=== PATIENT | male | born 1955 | race Caucasian/White ===

== ENCOUNTER → 2024-06-11 | Outpatient (CLI) | payer MEDICAID ==
[2024-06-11 10:13] LABS: Basophils # (A) 0.03 X 10*3/uL (0.00-0.10); Basophils % (A) 0.6 %; Eosinophils # (A) 0.16 X 10*3/uL (0.04-0.35); Eosinophils % (A) 3.4 %; HCT 47.5 % (39.6-50.0); Lymphocytes # (A) 0.95 X 10*3/uL (0.90-5.00); MCH 31.9 pg (27.0-32.0); MCHC 33.7 g/dL (32.0-37.0); MCV 94.6 FL (80.0-97.0); Mean Platelet Volume 9.6 FL (9.5-12.2); Monocytes # (A) 0.52 X 10*3/uL (0.20-1.00); Monocytes % (A) 10.9 %; NRBC Per 100 WBC 0 X 10*3/uL (0.00-0.01); Neutrophils # (A) 3.08 X 10*3/uL (1.80-7.70); Neutrophils % (A) 64.9 %; Platelet Count 187 X 10*3/uL (140-440); RBC 5.02 X 10*6/uL (4.40-5.60); RDW 13.1 % (11.5-14.5); WBC 4.75 X 10*3/uL (4.50-10.00)
[2024-06-11 10:46] LABS: Chol/HDL Ratio 3.86 Ratio; LDL Cholesterol,Calculated 172.8 mg/dL (0.0-131.0); T4, Free (Free Thyroxine) 1.14 ng/dL (0.80-1.80)
== END | disposition home or self-care (01) ==
LOC: LABWHC1 07:05
PROVIDERS: ATTEND Internal Medicine Critical Care Medicine
DX: Z00.00 Encounter for general adult medical examination without abnormal findings (principal)
CPT/HCPCS: 36415; 80061; 82306; 84153; 84439; 84443; 85025